=== PATIENT | male | born 1980 | race Caucasian/White ===

== ENCOUNTER 2022-06-25 21:41 | Emergency (ER) | payer MEDICAID ==
[~2022-06-25] VITALS: Ht 165.1 cm; Wt 80.7 kg
--- NOTE | 2022-06-25 22:01 | NUR ---
BIBS. TO ER BED 3. AAOX4. NOT IN RESP DISTRESS, BREATHING EVEN AND UNLABORED. AMBUALTORY. CAME IN FOR L SIDE CHEST PAIN RADIATING TO BACK AND NECK X 1500 6/10 [place] WHILE HE WAS DRIVING. EKG DONE AT BEDSIDE. AWAITING MD FOR EVAL PT CONNECTED TO MONITOR
--- NOTE | 2022-06-25 22:20 | NUR ---
ESTABLOSHED 20G LF. BLOOD DRAWN AND SENT TO LAB.
[2022-06-25 23:17] LABS: BASOPHILS % (AUTO) 0.6 % (0.0-2.0); HEMATOCRIT 43 % (39-51); HEMOGLOBIN 14.5 g/dL (13.5-17.5); LYMPHOCYTES % (AUTO) 27.7 % (20.0-44.0); MEAN CORPUSCULAR HGB CONC 34 g/dl (31.0-36.0); MEAN CORPUSCULAR VOLUME 98 fL (80-96); MONOCYTES # (AUTO) 0.7 K/uL (0.1-1.30); MONOCYTES % (AUTO) 9.3 % (2.0-12.0); NEUTROPHILS # (AUTO) 4.4 K/uL (1.8-8.9); NEUTROPHILS % (AUTO) 61.4 % (43.0-81.0); PLATELET COUNT (AUTO) 301 K/uL (150-450); RED BLOOD CELL COUNT(AUTO) 4.35 MIL/uL (4.5-6.0); WHITE BLOOD COUNT (AUTO) 7.2 K/uL (4.3-11.0)
[2022-06-25 23:30] LABS: CALCIUM, SERUM 8.4 mg/dL (8.5-10.1); CARBON DIOXIDE 28 mmol/L (21-32); CHLORIDE 103 mmol/L (98-107); GLUCOSE 86 mg/dL (74-106); POTASSIUM 3.3 mmol/L (3.5-5.1); SODIUM SERUM 139 mmol/L (136-145); UREA NITROGEN, BLOOD 14 mg/dL (7-18)
[2022-06-25] MEDS ORDERED: POTASSIUM CHLORIDE 20 MEQ TAB.PRT.SR PO ONE (23:59)
[2022-06-26] MEDS ORDERED: POTASSIUM CHLORIDE 20 MEQ TAB.PRT.SR PO ONE
--- NOTE | 2022-06-26 00:18 | NUR ---
Patient discharged to home in stable condition. Written and verbal after care instructions given. Patient verbalizes understanding of instruction. IV removed. Catheter intact and site benign. Pressure and 4x4 applied to site. No bleeding noted.
[2022-06-26 00:19] VITALS: BP 142/96
== END 2022-06-26 00:19 | disposition home or self-care (01) ==
LOC: ER 21:44
DX: R07.89 Other chest pain (principal)
CPT/HCPCS: 36415; 71045-TC; 80048-TC; 84484-TC; 85025-TC